=== PATIENT | female | born 1955 | race Caucasian/White ===

== ENCOUNTER 2018-08-30 10:52 | Emergency (ER) | payer BC ==
[~2018-08-30] VITALS: Ht 157.5 cm; Wt 63.5 kg
--- NOTE | 2018-08-30 10:55 | NUR ---
ALEKSANDR TORRES, CURRENTLY AWAITING BED
[2018-08-30 10:58] VITALS: BP 164/93
[2018-08-30] MEDS ORDERED: NACL 0.9% 1,000 ML IV SCH (11:56)
[2018-08-30] MEDS ORDERED: ONDANSETRON 4 MG/2 ML VIAL IVP ONE (12:00)
[2018-08-30] MEDS ORDERED: DEXAMETHASONE 10 MG/ML VIAL IVP ONE (12:00)
[2018-08-30] MEDS ORDERED: FAMOTIDINE 20 MG/2 ML VIAL IVP ONE (12:00)
[2018-08-30] MEDS ORDERED: diphenhydrAMINE 50 MG/ML VIAL IVP ONE (12:00)
[2018-08-30] MEDS ORDERED: METOCLOPRAMIDE 10 MG/2 ML INJ VIAL IVP ONE (12:00)
[2018-08-30] MEDS ORDERED: PROMETHAZINE 25 MG/ML VIAL IM ONE (12:00)
[2018-08-30 13:03] LABS: BASOPHILS % (AUTO) 0.2 % (0.0-2.0); EOSINOPHILS % (AUTO) 0.2 % (0.0-4.0); HEMOGLOBIN 13.5 g/dL (12.0-16.0); LYMPHOCYTES # (AUTO) 1.1 K/uL (2.5-16.5); LYMPHOCYTES % (AUTO) 10.3 % (20.5-51.1); MEAN CORPUSCULAR HEMOGLOBIN 29 pg (27-31); MEAN CORPUSCULAR HGB CONC 33 g/dL (33-37); MEAN CORPUSCULAR VOLUME 86.6 fL (80-94); MONOCYTES # (AUTO) 0.5 K/uL (0.8-1.0); MONOCYTES % (AUTO) 4.3 % (1.7-9.3); NEUTROPHILS # (AUTO) 9.4 K/uL (1.8-7.7); PLATELET COUNT (AUTO) 264 K/uL (140-450); RED BLOOD CELL COUNT(AUTO) 4.74 MIL/uL (4.20-5.40); RED CELL DISTRIBUTION WIDTH 13.4 % (11.6-13.7)
[2018-08-30 13:21] LABS: PROTHROMBIN TIME 9.3 secs (10.8-13.4)
[2018-08-30 13:31] LABS: ALBUMIN 3.7 g/dL (3.4-5.0); ANION GAP 14.4 (8-16); CARBON DIOXIDE 26.9 mmol/L (21-32); CREATININE 0.9 mg/dL (0.6-1.3); POTASSIUM 4.3 mmol/L (3.5-5.1); TOTAL BILIRUBIN 0.3 mg/dL (0.0-1.0)
[2018-08-30 13:34] VITALS: BP 154/78
--- NOTE | 2018-09-05 07:49 | NUR ---
Late entry. Received 1000 ml 0.9 NS IV bolus that began at 1223 and ended ay 1323
== END 2018-08-30 13:45 | disposition short-term general hospital (02) ==
LOC: MED 10:52
DX: I60.9 Nontraumatic subarachnoid hemorrhage, unspecified (principal); K21.9 Gastro-esophageal reflux disease without esophagitis; G43.909 Migraine, unspecified, not intractable, without status migrainosus
CPT/HCPCS: 36415; 70450; 71045; 80053; 82150; 83690; 84484; 85025; 85610; 85730; 93005; 96361; 96372; 96374; 96375; 99285; J1100; J1200; J2405; J2550; J2765; J3490; J7030; Q0092